=== PATIENT | female | born 1950 | race Caucasian/White ===

== ENCOUNTER 2019-08-20 10:32 | Inpatient (IN) | payer MEDICARE ==
[2019-08-13 14:43] LABS: BASOPHILS % (AUTO) 0.5 % (0-1); EOSINOPHILS # (AUTO) 0.1 X10'3 (0-0.9); EOSINOPHILS % (AUTO) 2.3 % (0-6); LYMPHOCYTES # (AUTO) 0.7 X10'3 (1.1-4.8); LYMPHOCYTES % (AUTO) 17.5 % (21-51); MEAN CORPUSCULAR HEMOGLOBIN 31.4 PG (27.0-31.0); MEAN CORPUSCULAR HGB CONC 34.5 g/dL (33.0-36.5); MEAN PLATELET VOLUME 7.3 FL (7.4-10.4); MONOCYTES # (AUTO) 0.4 X10'3 (0-0.9); MONOCYTES % (AUTO) 8.5 % (2-12); NEUTROPHILS % (AUTO) 71.2 % (42-75); PRE OP HEMATOCRIT 37.5 % (35.0-45.0); PRE OP HEMOGLOBIN 12.9 g/dL (12.0-16.0); PRE OP PLATELET COUNT 226 X10'3 (140-440); RED BLOOD COUNT 4.13 X10'6 (4.20-5.60); RED CELL DISTRIBUTION WIDTH 15.2 % (11.5-14.5)
[2019-08-13 14:47] LABS: PRE OP INR 0.9 INR; PRE OP PROTIME 9.9 SECONDS (9.0-12.0)
[2019-08-13 14:51] LABS: ALBUMIN 3.4 G/DL (3.4-5.0); ALBUMIN/GLOBULIN RATIO 0.9 (1.1-1.5); ALKALINE PHOSPHATASE 97 IU/L (46-116); BLOOD UREA NITROGEN 28 MG/DL (7-18); BUN/CREATININE RATIO 17.3 (6.6-38.0); CALCIUM 9.3 MG/DL (8.5-10.1); CHLORIDE 105 MMOL/L (99-107); CREATININE 1.62 MG/DL (0.40-0.90); PRE OP ALT 14 U/L (30-65); PRE OP ANION GAP 10 (8-16); PRE OP AST 12 U/L (10-37); PRE OP BILIRUB, TOTAL 0.7 MG/DL (0.0-1.0); PRE OP GLUCOSE 114 MG/DL (70-104); PRE OP POTASSIUM 4.4 MMOL/L (3.4-5.1); PRE OP SODIUM 140 MMOL/L (135-145); TOTAL CARBON DIOXIDE 25.2 MMOL/L (24-32); TOTAL PROTEIN 7.4 G/DL (6.4-8.2); eGFR 32 ML/MIN
[~2019-08-20] VITALS: Ht 167.6 cm; Wt 90.7 kg
[2019-08-20] VITALS (20 sets, daily range): BP systolic 95–122; BP diastolic 44–73
[~2019-08-20 10:32] MED LIST: ATEN25TA PO; AZAT50TA35 PO; CALC-206 PO; CALC500T11 PO; CHOL100044 PO; DOCUMENT DATE & TIME OF BETA-BLOCKER PO ONE; HYDR-3780 PO; MAGN400C PO; OMEP20CA11 PO; famotidine 20mg tablet PO ONE; ringers solution, lacted 1,000 ML IV SCH
[2019-08-20] MEDS ORDERED: cefazolin/dext.iso 2gm/50ml 50 ML IV ONE (11:00)
[2019-08-20] MEDS ORDERED: hydrocortisone sod succ/PF 100mg/2ml inj. IV ONE (11:00)
[2019-08-20] MEDS ORDERED: ALFU10TA10 PO (11:22)
[2019-08-20] MEDS ORDERED: neomy sulf/polymyxin B sulf. GU irrigation 1ml amp IR ONE (13:17)
[2019-08-20] MEDS ORDERED: fentaNYL/PF 50MCG/1 ML 2ML syringe IV PRN ×2 (13:30)
[2019-08-20] MEDS ORDERED: labetalol 20mg/4ml (5mg/ml) syringe IV PRN (13:30)
[2019-08-20] MEDS ORDERED: morphine 4 MG/ML inj SYRINge IV PRN ×2 (13:30)
[2019-08-20] MEDS ORDERED: ondansetron/PF 4mg/2ml inj IV PRN ×2 (13:30→15:50)
[2019-08-20] MEDS ORDERED: hydrALAZINE 20mg/ml inj. IV PRN (13:30)
[2019-08-20] MEDS ORDERED: ringers solution, lacted 1,000 ML IV SCH (13:30)
[2019-08-20] MEDS ORDERED: fentaNYL/PF 50MCG/1 ML 2ML syringe ONE (13:43)
[2019-08-20] MEDS ORDERED: midazolam 2 mg/2 ml injection ONE (13:43)
[2019-08-20] MEDS ORDERED: LIDOcaine 2% (20mg/ml) 5ml vial ONE (13:44)
[2019-08-20] MEDS ORDERED: propofol inj 20 ML IV ONE (13:44)
[2019-08-20] MEDS ORDERED: rocuronium 10mg/ml inj IV ONE (13:45)
[2019-08-20] MEDS ORDERED: ondansetron/PF 4mg/2ml inj ONE (13:45)
[2019-08-20] MEDS ORDERED: dexamethasone sod phosphate 4mg/ml inj. ONE (13:46)
[2019-08-20] MEDS ORDERED: sevoflurane 250ml liquid IH ONE (13:46)
[2019-08-20] MEDS ORDERED: glycopyrrolate 0.2mg/ml inj ONE (14:31)
[2019-08-20] MEDS ORDERED: neostigmine methylsulfate 1 MG/ML 10ml vial ONE (14:31)
--- NOTE | 2019-08-20 15:45 | NUR ---
Received from OR via BED, accompanied by Anesthesiologist DR LUCIO and report given by Anesthesiologist. PT SABINESY, VSS, ALVARADO CATHETER TO GRAVITY DRAINAGE W/DARK JODY URINE IN DRAINAGE BAG. Addendum: 08/20/19 at 1633 by Fernanda Yu RN Amended: Links added. Addendum: 08/20/19 at 1806 by Fernanda Yu RN LATE ENTRY: PT HAS ALVINA UNDER DRSG ON ABDOMEN W/SANGUINOUS DRAINAGE, DRSG TO ABDOMEN W/SMALL AMT OF S/S DRAINAGE.
[2019-08-20] MEDS ORDERED: oxybutynin 5mg tablet PO PRN (15:50)
--- NOTE | 2019-08-20 17:35 | NUR ---
Report called to receiving nurse. Transferred via BED, 1 BAG OF Belongings SENT W/PT TO ROOM 340A, BLL, CALL LIGHT GIVEN, SIDE RAILS UP X 2, VS INITIATED, INFORMED RECEIVING RN OF PTS ARRIVAL. Special Issues communicated to receiving nurse. YES. Addendum: 08/20/19 at 1803 by Fernanda Yu RN Amended: Links added.
--- NOTE | 2019-08-20 17:49 | NUR ---
RECEIVED REPORT FROM RECOVERY AND ASSUMED CARE OF PT.
[2019-08-20] MEDS: HYDROmorphone 1 mg/ml syringe IV PRN ×2 (18:22→22:37)
--- NOTE | 2019-08-20 18:51 | NUR ---
GAVE REPORT TO ANN Pham RN
[2019-08-20] MEDS: potassium cl 20mEq in 1/2 NS 1,000 ML IV SCH ×2 (20:22→23:50)
[2019-08-21] VITALS: BP 119/67
[2019-08-21] MEDS: HYDROcodone/acetaminophen 10/325mg tab PO PRN ×3 (00:44→11:32)
[2019-08-21] MEDS: potassium cl 20mEq in 1/2 NS 1,000 ML IV SCH (04:39)
[2019-08-21 04:56] LABS: ALBUMIN 2.8 G/DL (3.4-5.0); ANION GAP 9 (8-16); BLOOD UREA NITROGEN 19 MG/DL (7-18); BUN/CREATININE RATIO 16.8 (6.6-38.0); CHLORIDE 107 MMOL/L (99-107); CREATININE 1.13 MG/DL (0.40-0.90); GLUCOSE 122 MG/DL (70-104); SODIUM 138 MMOL/L (135-145); TOTAL CARBON DIOXIDE 21.7 MMOL/L (24-32); eGFR 48 ML/MIN
[2019-08-21 05:00] LABS: BASOPHILS % (AUTO) 0.2 % (0-1); EOSINOPHILS % (AUTO) 0 % (0-6); HEMATOCRIT 36.5 % (35.0-45.0); HEMOGLOBIN 12.3 g/dl (12.0-16.0); LYMPHOCYTES # (AUTO) 0.5 X10'3 (1.1-4.8); LYMPHOCYTES % (AUTO) 5.4 % (21-51); MEAN CORPUSCULAR HGB CONC 33.9 g/dL (33.0-36.5); MEAN CORPUSCULAR VOLUME 91.7 FL (78-98); MEAN PLATELET VOLUME 7.4 FL (7.4-10.4); MONOCYTES # (AUTO) 0.5 X10'3 (0-0.9); MONOCYTES % (AUTO) 5.5 % (2-12); NEUTROPHILS # (AUTO) 7.6 X10'3 (1.8-7.7); NEUTROPHILS % (AUTO) 88.9 % (42-75); PLATELET COUNT 180 X10'3 (140-440); RED BLOOD COUNT 3.98 X10'6 (4.20-5.60); WHITE BLOOD COUNT 8.6 X10'3 (4.5-11.0)
--- NOTE | 2019-08-21 06:33 | NUR ---
Problems reprioritized. Patient report given, questions answered & plan of care reviewed with ESTER Partida. Addendum: 08/21/19 at 0634 by Kari Santizo RN Amended: Links added.
--- NOTE | 2019-08-21 06:50 | NUR ---
Patient in room [facility]. I have received report from Bridget Pham RN and had the opportunity to ask questions and assume patient care.
[2019-08-21 07:00] VITALS: BP 91/45
--- NOTE | 2019-08-21 10:35 | NUR ---
Discontinued ALVINA on the right abdomen as per Dr. Wesley order. Midline abdominal dressing changed also per MD order, incision is stapled, no signs of infection noted.
[2019-08-21 11:00] VITALS: BP 92/53
--- NOTE | 2019-08-21 12:50 | NUR ---
Discharged patient home, discharge instructions given to patient. Patient verbalized understanding of all instructions made. Peripheral IV catheter removed, tip intact. Hooked patient's samano catheter to leg bag, samano care instructions given and educated patient about changing samano bag to night time samano bag. Infection control measures emphasized during instructions including signs and symptoms to look for. New samano bag and alcohol prep sent with patient. Instructed patient to ensure she has all the belongings with her before leaving. Patient accompanied by her upon discharge.
[2019-08-22] MEDS ORDERED: docusate sod 250mg capsule PO SCH (08:00)
== END 2019-08-21 12:57 | disposition home or self-care (01) | DRG 655 ==
LOC: PAS IN 10:32 → EDSTATUS 13:00 → SUR 3N 17:50
PROVIDERS: ADMIT Urology; ATTEND Urology
PROC: 0TBB0ZZ Excision of Bladder, Open Approach (ICD-10-PCS; 2019-08-20)
PROC: 0T5B8ZZ Destruction of Bladder, Via Natural or Artificial Opening Endoscopic (ICD-10-PCS; principal; 2019-08-20 13:46)
DX: C67.1 Malignant neoplasm of dome of bladder (principal); K21.9 Gastro-esophageal reflux disease without esophagitis; N18.3 Chronic kidney disease, stage 3 (moderate); E11.9 Type 2 diabetes mellitus without complications; E66.9 Obesity, unspecified; Z68.32 Body mass index [BMI] 32.0-32.9, adult; Z88.2 Allergy status to sulfonamides; Z88.1 Allergy status to other antibiotic agents; Z87.440 Personal history of urinary (tract) infections; Z90.710 Acquired absence of both cervix and uterus
CPT/HCPCS: 36415; 71046; 80048; 80053; 82948; 85025; 85610; 85730; 86885; 86900; 86901; 87081; 88307; A4338; A4355; A4357; A4618; A7000; G0378; J1100; J1170; J1720; J2001; J2250; J2270; J2405; J2704; J2710; J3010; J3480; J3490; J7120